=== PATIENT | male | born 1980 | race Hispanic/Latino ===

== ENCOUNTER 2016-09-06 10:18 | Emergency (ER) | payer SELFPAY ==
[2016-09-06] MEDS ORDERED: ADRENALIN ONE (10:35)
[2016-09-06] MEDS ORDERED: CALCIUM CHLORIDE IV ONE (10:35)
[2016-09-06] MEDS ORDERED: D50W (25GM) IV ONE (10:35)
[2016-09-06] MEDS ORDERED: SODIUM BICARBONATE IV ONE (10:35)
--- NOTE | 2016-09-06 12:10 | Emergency Department Report ---
ED CPR HPI - General Chief Complaint: Cardiac Arrest/CPR Stated Complaint: CARDIAC ARREST Time Seen by Provider: 09/06/16 11:08 Source: EMS Mode of arrival: Stretcher Limitations: Other - History of Present Illness Initial Comments: 36-year-old male presents to the emergency department via EMS in cardiac arrest. History is obtained from EMS due to the patient's clinical condition. Per report, the initial EMS call was for difficulty breathing. Patient was found at an adult day care by EMS to be unresponsive. Patient was found to be in ventricular fibrillation and CPR was initiated. Patient was defibrillated twice by EMS and received 1 mg of epinephrine. He was intubated by EMS with a 7.0 endotracheal tube. Patient had return of spontaneous circulation with EMS, but EMS reports a ventricular rhythm with a rate of 40. Transcutaneous pacing was initiated and the patient was transported to the emergency department. EMS reports approximately 15 minutes from time of collapse. Place: other (adult day care) Bystander CPR Performed: No AED Applied by Bystander/Plumbing Mechanic: No Downtime Before ACLS Arrival (mins): 5 Initial Findings in the Field: unresponsive, no respirations, VTACH/VFIB ROSC in the Field: Yes Associated Injuries: No Treatments Prior to Arrival: intubation, chest compressions, defribrillated shocks # (2), epinephrine mgs # (1) - Related Data Allergies Allergy/AdvReac Type Severity Reaction Status Date / Time Unable to Assess Allergy Unverified 09/06/16 10:20 ED Review of Systems ROS: Stated complaint: CARDIAC ARREST Other details as noted in HPI Comment: Unobtainable due to pts medical conditions ED Past Medical Hx - Past Medical History Previous Medical History?: Yes Additional medical history: blind. deaf - Surgical History Past Surgical History?: No - Social History Smoking Status: Unknown if ever smoked ED Physical Exam - General Limitations: Other General appearance: obtunded - Head Head exam: Present: atraumatic, normocephalic - Eye Eye exam: Present: other (pupils 4 mm equal and fixed) - ENT ENT exam: Present: mucous membranes moist, other (7.[address]) - Neck Neck exam: Present: normal inspection, full ROM - Respiratory Respiratory exam: Present: other (no spontaneous respirations, breath sounds clear bilaterally with bagging) - Cardiovascular Cardiovascular Exam: Present: other (no palpable pulse with transcutaneous pacing) - GI/Abdominal GI/Abdominal exam: Present: soft. Absent: distended - Extremities Exam Extremities exam: Present: normal inspection, full ROM - Neurological Exam Neurological exam: Present: other (GCS 3T (E1, V1T, M1)) - Skin Skin exam: Present: warm, dry, intact ED Medical Decision Making - Medical Decision Making On arrival,, the patient was being transcutaneous paced. No palpable pulsatile was verified. The pacemaker was discontinued and asystole was noted on the monitor. No cardiac activity was noted on bedside ultrasound. CPR was restarted in the emergency department under my supervision. ACLS protocol was followed, see hospital code sheet. Patient received multiple doses of epinephrine. He also received bicarbonate, calcium, and D50. Patient did go into ventricular fibrillation multiple times and received multiple shocks. A dopamine drip was also started once the patient developed PEA. At that ultrasound at that time did show some slight cardiac activity. Transcutaneous pacing was again attempted, but without success. CPR was continued in the emergency department for almost 40 minutes. Patient was continuing to show asystole on the monitor after starting dopamine and transferred to. Further tests were deemed futile. Time of recorded at 1055. Critical care attestation.: If time is entered above; I have spent that time in minutes in the direct care of this critically ill patient, excluding procedure time. ED Disposition Clinical Impression: Cardiac arrest Disposition: DC-20 Is pt being admited?: No Condition: Stable Referrals: PRIMARY CARE, [Primary Care Provider] - 3-5 Days Time of Disposition: 10:55
== END 2016-09-06 14:35 ==
LOC: ED 10:18
DX: I46.9 Cardiac arrest, cause unspecified (principal)
CPT/HCPCS: 92950; 99285; J0171